=== PATIENT | female | born 1955 | race African-American/Black ===

== ENCOUNTER 2017-08-29 10:29 | Emergency (ER) | payer MEDICARE, MEDICAID | END 2017-08-29 11:26 | disposition home or self-care (01) | LOC: ERS 10:29 | DX: M79.89 Other specified soft tissue disorders (principal) | CPT/HCPCS: 99283 ==

== ENCOUNTER 2017-12-25 07:56 | Outpatient (CLI) | payer MEDICARE, OTHER | END 2017-12-25 07:57 | disposition home or self-care (01) | LOC: BICMAMMO 07:56 | PROVIDERS: ATTEND Family Medicine | DX: Z12.31 Encounter for screening mammogram for malignant neoplasm of breast (principal) | CPT/HCPCS: 77063; 77067 ==

== ENCOUNTER 2018-01-13 06:00 | Emergency (ER) | payer MEDICARE, OTHER ==
[2018-01-13 07:24] LABS: #Eosinphils 0.1 thou/uL (0.0-0.7); #Lymphocytes 1.1 thou/uL (1.20-3.40); #Monocytes 0.3 thou/uL (0.11-0.59); #Neutrophils 3.7 thou/uL (1.40-6.50); %Basophils 0.4 % (0.0-1.0); %Eosinophils 1.4 % (0.0-10.0); %Lymphocytes 21.3 % (21.0-51.0); %Neutrophils 70.9 % (42.0-75.0); Hemoglobin 12.1 g/dL (12.0-16.0); Mean Corpuscular HGB CONC 33.2 g/dL (32.0-36.0); Mean Corpuscular Hemoglobin 32.3 pg (27.0-31.0); Mean Corpuscular Volume 97.2 fL (78.0-98.0); Mean Platelet Volume 9.5 fL (7.4-10.4); Platelet Count 184 thou/uL (130-400); RBC Distribution Width 12.8 % (11.5-14.5); Red Blood Cell (RBC) Count 3.74 mill/uL (4.20-5.40); White Blood Cell (WBC) Count 5.2 thou/uL (4.8-10.8)
[2018-01-13 07:42] LABS: ALT (SGPT) 14 U/L (8-55); AST (SGOT) 16 U/L (5-34); Albumin 3.7 g/dL (3.5-5.0); Alkaline Phosphatase 96 U/L (40-150); Anion Gap 13 mmol/L (10-20); BUN (Urea Nitrogen) 16 mg/dL (9.8-20.1); Bilirubin, Total 0.5 mg/dL (0.2-1.2); Calc. Creatinine Clearance 0 mL/min (70-130); Carbon Dioxide 22 mmol/L (22-29); Chloride 106 mmol/L (98-107); Estimated GFR-MDRD 75; Glucose 196 mg/dL (70-105); Potassium 4.4 mmol/L (3.5-5.1); Protein, Total 7.7 g/dL (6.0-8.3); Sodium 137 mmol/L (136-145)
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
[2018-01-13] MEDS ORDERED: Ketorolac Tromethamine 30 MG/ML VIAL ONE (09:20)
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
== END 2018-01-13 09:25 | disposition home or self-care (01) ==
LOC: ERS 06:00
DX: S42.034A Nondisplaced fracture of lateral end of right clavicle, initial encounter for closed fracture (principal); E11.9 Type 2 diabetes mellitus without complications; I10 Essential (primary) hypertension; E78.00 Pure hypercholesterolemia, unspecified; F32.9 Major depressive disorder, single episode, unspecified; F41.9 Anxiety disorder, unspecified; Z79.899 Other long term (current) drug therapy; V49.69XA Unspecified car occupant injured in collision with other motor vehicles in traffic accident, initial encounter
CPT/HCPCS: 70450; 71260; 72125; 80053; 85025; J1885

== ENCOUNTER 2018-04-05 16:02 | Observation (INO) | payer MEDICARE, MEDICAID ==
--- NOTE | 2018-04-05 16:51 | RAD ---
PA AND LATERAL CHEST: HISTORY: A 62-year-old female with a history of cough for two weeks. FINDINGS: Heart size is within normal limits. Bronchovascular markings are increased bilaterally. There are s ome patchy alveolar parenchymal changes noted in the right upper, mid, and lower lung zones, and left base, more concerning for pneumonia, although asymmetric edema could conceivably have a similar appe arance. There does appear to be some mild vascular congestion. IMPRESSION: 1. Mild bilateral vascular congestion. 2. Patchy alveolar parenchymal changes in the right upper, right mid, and right lower lung zones and left lower lung zone, evidence for patchy pneumonia. Correlate clinically. Continue short-term fol lowup for complete clearing. POS: [facility]
[2018-04-05 17:54] LABS: #Eosinphils 0.1 thou/uL (0.0-0.7); #Monocytes 0.4 thou/uL (0.11-0.59); #Neutrophils 4.7 thou/uL (1.40-6.50); %Basophils 0.6 % (0.0-1.0); %Eosinophils 1.1 % (0.0-10.0); %Lymphocytes 15.8 % (21.0-51.0); %Neutrophils 75.5 % (42.0-75.0); Hemoglobin 12.7 g/dL (12.0-16.0); Mean Corpuscular Hemoglobin 31.5 pg (27.0-31.0); Mean Corpuscular Volume 95.5 fL (78.0-98.0); Mean Platelet Volume 8.9 fL (7.4-10.4); Platelet Count 253 thou/uL (130-400); RBC Distribution Width 12.8 % (11.5-14.5); Red Blood Cell (RBC) Count 4.03 mill/uL (4.20-5.40); White Blood Cell (WBC) Count 6.2 thou/uL (4.8-10.8)
[2018-04-05] MEDS ORDERED: Cefepime 2 GM VIAL ONE (18:06)
[2018-04-05 18:12] LABS: Bilirubin Negative (Negative); Blood, Urine Negative (Negative); Clarity CLOUDY (Clear); Glucose, Urine (Dipstick) Negative (Negative); Leukocyte Small (Negative); Nitrite Negative (Negative); Protein, Urine (Dipstick) Trace mg/dL (Neg-Trace); Specific Gravity, Urine 1.027 (1.002-1.036)
[2018-04-05 18:15] LABS: Bacteria/HPF 1+ HPF (None Seen); Pathc Cast-AUWi Flag 1.88 (0-2.49)
[2018-04-05 18:23] LABS: Crystals/HPF None Seen HPF (Negative); Hyaline Casts/LPF 0-3 HYALINE CAST LPF (0-3 Hyaline); RBC/HPF None Seen HPF (0-3); Squamous Epithelial 0-3 HPF (0-3)
[2018-04-05 18:34] LABS: CKMB 0.3 ng/mL (0-6.6); Troponin I Less than 0.010 ng/mL (< 0.028)
[2018-04-05 18:34] LABS: ALT (SGPT) 17 U/L (8-55); Albumin 3.7 g/dL (3.5-5.0); Alkaline Phosphatase 78 U/L (40-150); BUN (Urea Nitrogen) 16 mg/dL (9.8-20.1); Bilirubin, Total 0.5 mg/dL (0.2-1.2); Calc. Creatinine Clearance 0 mL/min (70-130); Calcium 9.2 mg/dL (7.8-10.44); Carbon Dioxide 19 mmol/L (22-29); Chloride 104 mmol/L (98-107); Estimated GFR-MDRD 73; Glucose 111 mg/dL (70-105); Sodium 137 mmol/L (136-145)
[2018-04-05 18:39] LABS: Globulin 4.1 g/dL (2.4-3.5); Potassium 4.4 mmol/L (3.5-5.1); Protein, Total 7.8 g/dL (6.0-8.3)
[2018-04-05 18:40] LABS: Anion Gap 18 mmol/L (10-20)
[2018-04-05 18:43] LABS: AST (SGOT) 24 U/L (5-34)
--- NOTE | 2018-04-05 19:13 | PDOC.FPRHP ---
- History of Present Illness Chief Complaint: cough History of Present Illness: Patient is a 62YO AAF with a PMH significant for HTN and DMII who presented to the ED with a CC of persistent cough and congestion that has been ongoing for the last week. The patient reported that about 1 week ago she developed a cough and some chest congestion. She states that the cough has been productive of white sputum and that she has had some associated fatigue but has not felt febrile or chilled. Her appetite has also still been normal. She also endorsed some associated ear pressure but denied any sore throat, eye pain or discharge or headache. She stated that her daughter has also recently been ill with a viral infection. She has been taking mucinex and tussin at home for the cough and stated she did not get much relief with them. ED Course: The patient was given one dose of IV cefepime and vancomycin as well as PO levaquin and 3L of NS. - Allergies/Adverse Reactions Allergies Allergy/AdvReac Type Severity Reaction Status Date / Time Penicillins Allergy Verified 04/06/18 01:16 - Home Medications Medication Instructions Recorded Confirmed Type Atorvastatin Calcium [Lipitor] 20 mg PO HS 04/05/18 04/05/18 History Hydrochlorothiazide 12.5 mg PO DAILY 04/05/18 04/05/18 History Losartan Potassium [Cozaar] 25 mg PO DAILY 04/05/18 04/05/18 History Meclizine HCl [Antivert] 25 mg PO QID PRN 04/05/18 04/05/18 History Pioglitazone HCl [Actos] 45 mg PO DAILY 04/05/18 04/05/18 History glipiZIDE [Glipizide] 5 mg PO DAILY 04/05/18 04/05/18 History - History PMHx: DMII, HTN, HLD, fibrmyalgia, GERD, BPV, tinnitus, Depression/anxiety PSHx: Left ankle surgery & cholecystectomy FHx: HTN & DMII in mother and paternal uncle Social: Lives at home alone in [place]. No tobacco, EtOH, or drug use. - Review of Systems General: reports: fatigue. denies: fever/chills, weight/appetite/sleep changes Eyes: denies: eye pain, vision changes ENT: reports: other (no sore throat). denies: nasal congestion Respiratory: reports: cough, congestion. denies: shortness of breath Cardiovascular: denies: chest pain, edema Gastrointestinal: denies: nausea, vomiting, diarrhea, constipation Genitourinary: denies: dysuria, polyuria Skin: denies: rashes, itching Musculoskeletal: denies: swelling, arthritis/arthralgias Neurological: denies: numbness, syncope, weakness Psychological: reports: anxiety. denies: depression - Vital signs BP: 161/107 HR: 95 RR: 22 Tmax: 100.5F Pox: 98% on 2L Wt: 120.429 kg - Physical Exam Constitutional: NAD, awake, alert and oriented, well developed HEENT: normocephalic and atraumatic, conjunctiva clear, grossly normal vision, grossly normal hearing, oropharynx clear, other (slightly dry mucus membranes) Neck: supple, FROM Heart: RRR, normal S1/S2, pulses present, no edema Lungs: no respiratory distress, good air movement, no wheezing, other (slight crackles in RML on PE.) Abdomen: soft, non-tender, bowel sounds present Musculoskeletal: normal structure, ROM grossly normal Neurological: no focal deficit -Neurological: symmetric facial movements Skin: no rash/lesions, good turgor, no jaundice Heme/Lymphatic: no unusual bruising or bleeding Psychiatric: normal mood and affect, good judgment and insight, intact recent and remote memory FMR H&P: Results - Labs Result Diagrams: 04/05/18 17:31 04/06/18 05:05 Lab results: WBC 6.2 thou/uL (4.8-10.8) 04/05/18 17:31 Hgb 12.7 g/dL (12.0-16.0) 04/05/18 17:31 Hct 38.5 % (36.0-47.0) 04/05/18 17:31 MCV 95.5 fL (78.0-98.0) 04/05/18 17:31 Plt Count 253 thou/uL (130-400) 04/05/18 17:31 Neutrophils % 75.5 % (42.0-75.0) H 04/05/18 17:31 Sodium 137 mmol/L (136-145) 04/05/18 17:31 Potassium 4.4 mmol/L (3.5-5.1) 04/05/18 17:31 Chloride 104 mmol/L (98-107) 04/05/18 17:31 Carbon Dioxide 19 mmol/L (22-29) L 04/05/18 17:31 BUN 16 mg/dL (9.8-20.1) 04/05/18 17:31 Creatinine 0.95 mg/dL (0.6-1.1) 04/05/18 17:31 Glucose 111 mg/dL (70-105) H 04/05/18 17:31 Lactic Acid 1.3 mmol/L (0.5-2.2) 04/05/18 17:31 Calcium 9.2 mg/dL (7.8-10.44) 04/05/18 17:31 Total Bilirubin 0.5 mg/dL (0.2-1.2) 04/05/18 17:31 AST 24 U/L (5-34) 04/05/18 17:31 ALT 17 U/L (8-55) 04/05/18 17:31 Alkaline Phosphatase 78 U/L (40-150) 04/05/18 17:31 CK-MB (CK-2) 0.3 ng/mL (0-6.6) 04/05/18 17:37 B-Natriuretic Peptide Less than 10.0 pg/mL (0-100) 04/05/18 17:37 Serum Total Protein 7.8 g/dL (6.0-8.3) 04/05/18 17:31 Albumin 3.7 g/dL (3.5-5.0) 04/05/18 17:31 Urine Ketones Trace mg/dL (Negative) H 04/05/18 17:45 Urine Blood Negative (Negative) 04/05/18 17:45 Urine Nitrite Negative (Negative) 04/05/18 17:45 Ur Leukocyte Esterase Small (Negative) H 04/05/18 17:45 Urine RBC None Seen HPF (0-3) 04/05/18 17:45 Urine WBC 4-6 HPF (0-3) H 04/05/18 17:45 Ur Squamous Epith Cells 0-3 HPF (0-3) 04/05/18 17:45 Urine Bacteria 1+ HPF (None Seen) H 04/05/18 17:45 - EKG Interpretation EKG: NSR - Radiology Interpretation Chest x-ray Status: image reviewed by me, report reviewed by me (multifocal PNA w/ patchy infiltrates throughout on the R and in LLL) FMR H&P: A/P - Problem List (1) Sepsis Current Visit: Yes Status: Acute Code(s): A41.9 - SEPSIS, UNSPECIFIED ORGANISM Qualifiers: Sepsis type: sepsis due to unspecified organism Qualified Code(s): A41.9 - Sepsis, unspecified organism (2) Pneumonia Current Visit: Yes Status: Acute Code(s): J18.9 - PNEUMONIA, UNSPECIFIED ORGANISM Qualifiers: Pneumonia type: due to unspecified organism Laterality: bilateral (3) HTN (hypertension) Current Visit: Yes Status: Chronic Code(s): I10 - ESSENTIAL (PRIMARY) HYPERTENSION Qualifiers: Hypertension type: essential hypertension Qualified Code(s): I10 - Essential (primary) hypertension (4) Diabetes type 2, controlled Current Visit: Yes Status: Chronic Code(s): E11.9 - TYPE 2 DIABETES MELLITUS WITHOUT COMPLICATIONS (5) BPV (benign positional vertigo) Current Visit: Yes Status: Chronic Code(s): H81.10 - BENIGN PAROXYSMAL VERTIGO, UNSPECIFIED EAR (6) Tinnitus Current Visit: Yes Status: Chronic Code(s): H93.19 - TINNITUS, UNSPECIFIED EAR (7) Fibromyalgia Current Visit: Yes Status: Chronic (8) GERD (gastroesophageal reflux disease) Current Visit: Yes Status: Chronic Code(s): K21.9 - GASTRO-ESOPHAGEAL REFLUX DISEASE WITHOUT ESOPHAGITIS - Plan 62YO AAF w/ a PMH of DMII & HTN who presented to the ED with a chief complaint of a persistent cough that has been ongoing for the last week who was found to be be septic 2/2 diffuse R and LLL PNA on chest x-ray. Sepsis 2/2 multifocal PNA: - Patient was tachycardic up to 110, tachypnic up to a RR of 26, and febrile up to 100.5F in the ED. CXR was also significant for multifocal PNA. - Procal was 0.10 and lactate was 1.4. WBC WNLs at 6.2. Appeared slightly dry on PE. - Was given 3L of NS as well as IV cefepime and vanc. Was also given a dose of PO levaquin. - Will continue PO levaquin only for now as patient does not require MRSA or double pseudomonas coverage as she has no risk factors for either. - Will continue IVF w/ LR @ 140mL/hr. - Blood and urine cultures pending. - Repeat procal & BMP ordered for AM. HTN: - Patient BP elevated up to 186/107 in the ED. Was down to SBP in the 160s on PE. Stated that she did take her BP meds at home today. - Will resume home meds and continue to monitor closely on telemetry. DMII: - A1c 6.4 per labs in clinic last month. - Will resume home meds and start on mild SSI and get ACHS accuchecks. - Will order hypoglycemia protocol as well. GERD: - Will resume home meds. BPV: - Will resume home PRN meclizine and zofran. h/o anxiety/depression: - Patient denies taking anything for either of these currently. FMR H&P: Upper Level - Pertinent history 62 F with PMHx T2DM here with cc of cough for a week. She endorses white sputum production with the cough. She denies subjective fever, chills, n/v/d. Her daughter has been sick with similar symptoms. She denies any chest pain or orthopnea. She endorses a little bit of ear pain in her R ear. - Pertinent findings Febrile, tachycardic CXR shows multifocal PNA, EKG NSR Gen: awake, alert, oriented, in no distress HEENT: atraumatic, normocephalic, dry MM CV:RRR, no murmur noted RESP: Expiratory wheezing in RUL ABD: soft, nontender, nondistended, bowel sounds present EXT: no cyanosis, edema on BL ankles which patient states is a lipoma - Plan Date/Time: 04/05/181912 62 yo F with sepsis 2/2 multifocal pneumonia 1. Sepsis 2/2 multifocal PNA - Mildly hypoxic, tachycardic and febrile on presentation - s/p 3L in ED, will continue IV fluids with LR - BCx, UCx pending - Will continue levaquin - Duonebs PRN - Procal WNL Please see Dr. Wise's note for remainder of A/P for chronic medical conditions. I, Kaity Martinez MD, PGY-3, have evaluated this patient and agree with findings/ plan as outlined by post graduate intern resident. Pertinent changes/additions are listed here. Attending Addendum - Attending Addendum Date/Time: 04/06/18 3018 I personally evaluated the patient and discussed the management with Dr. Wise/ Juan. I agree with the History, Examination, Assessment and Plan documented above with any addition or exceptions noted below. Patient likely with viral pneumonia due to low PCT and reassuring WBC. Hold abx and monitor clinical course.
[2018-04-05] MEDS ORDERED: Sodium Chloride 0.45% 1,000 ML IV SCH (20:45)
[2018-04-05] MEDS ORDERED: Acetaminophen 325 MG TAB PO PRN (20:49)
[2018-04-05] MEDS ORDERED: Dextrose 5% in Water 1,000 ML IV PRN (20:49)
[2018-04-05] MEDS ORDERED: Dextrose 50% Abboject 50 ML SYRINGE SLOW IVP PRN (20:49)
[2018-04-05] MEDS ORDERED: HumaLOG 300 UNITS/3 ML VIAL SC PRN (20:49)
[2018-04-05 20:56] VITALS: BMI 53.6
[2018-04-05] MEDS: guaiFENesin/DM ER PO SCH (21:36)
[2018-04-05] MEDS: Lactated Ringer's 1,000 ML IV SCH (21:37)
[2018-04-05] MEDS: Enoxaparin Sodium 40 MG/0.4 ML SYRINGE SC SCH (21:37)
[2018-04-06] MEDS: Lactated Ringer's 1,000 ML IV SCH (03:39)
[2018-04-06] MEDS: Meclizine HCl 25 MG TAB PO PRN ×2 (04:32→23:51)
[2018-04-06] MEDS ORDERED: Calcium Carbonate 500 MG ChewTAB PO PRN (04:36)
[2018-04-06 06:06] LABS: Anion Gap 16 mmol/L (10-20); BUN (Urea Nitrogen) 11 mg/dL (9.8-20.1); Calc. Creatinine Clearance 162 mL/min (70-130); Calcium 8.2 mg/dL (7.8-10.44); Carbon Dioxide 14 mmol/L (22-29); Chloride 110 mmol/L (98-107); Estimated GFR-MDRD Greater than 90; Glucose 133 mg/dL (70-105); Potassium 3.9 mmol/L (3.5-5.1); Sodium 136 mmol/L (136-145)
--- NOTE | 2018-04-06 06:49 | PDOC.FM ---
- Subjective Subjective: Patient doing well this AM. No significant overnight events. Patient states she is feeling better. She still feels like she has a lot of congestion in her chest. She is tolerating PO. Patient inquiring when she will be able to go home. - Objective MAR Reviewed: Yes Vital Signs & Weight: Vital Signs (12 hours) Temp Pulse Resp BP Pulse Ox 04/06/18 03:43 97.9 F 79 18 129/67 94 L 04/05/18 23:15 98.7 F 82 20 130/65 96 04/05/18 20:37 94 L 04/05/18 20:36 98.8 F 91 22 H 136/73 87 L Weight Weight 120.429 kg I&O: 04/04/18 04/05/18 04/06/18 06:59 06:59 06:59 Intake Total 1412 Output Total 425 Balance 987 Result Diagrams: 04/05/18 17:31 04/06/18 05:05 EKG Reviewed by me: Yes Radiology Reviewed by me: Yes <Lexy De Los Santos - Last Filed: 04/06/18 10:02> - Objective Vital Signs & Weight: Vital Signs (12 hours) Temp Pulse Resp BP Pulse Ox 04/06/18 08:00 98.9 F 90 18 142/70 H 95 04/06/18 03:43 97.9 F 79 18 129/67 94 L 04/05/18 23:15 98.7 F 82 20 130/65 96 Weight Weight 120.429 kg I&O: 04/05/18 04/06/18 04/07/18 06:59 06:59 06:59 Intake Total 1412 Output Total 425 Balance 987 Result Diagrams: 04/05/18 17:31 04/06/18 05:05 <Mitchel Yusuf - Last Filed: 04/06/18 10:24> Phys Exam - Physical Examination Constitutional: NAD HEENT: moist MMs Neck: supple Respiratory: wheezing present Cardiovascular: RRR, no significant murmur Gastrointestinal: soft, no distention Musculoskeletal: no edema, pulses present Neurological: non-focal, moves all 4 limbs Psychiatric: normal affect, A&O x 3 Skin: no rash, cap refill <2 seconds <Lexy De Los Santos - Last Filed: 04/06/18 10:02> Dx/Plan (1) Sepsis Code(s): A41.9 - SEPSIS, UNSPECIFIED ORGANISM Status: Acute Qualifiers: Sepsis type: sepsis due to unspecified organism Qualified Code(s): A41.9 - Sepsis, unspecified organism (2) Pneumonia Code(s): J18.9 - PNEUMONIA, UNSPECIFIED ORGANISM Status: Acute Qualifiers: Pneumonia type: due to unspecified organism Laterality: bilateral (3) BPV (benign positional vertigo) Code(s): H81.10 - BENIGN PAROXYSMAL VERTIGO, UNSPECIFIED EAR Status: Chronic (4) Diabetes type 2, controlled Code(s): E11.9 - TYPE 2 DIABETES MELLITUS WITHOUT COMPLICATIONS Status: Chronic (5) Fibromyalgia Status: Chronic (6) GERD (gastroesophageal reflux disease) Code(s): K21.9 - GASTRO-ESOPHAGEAL REFLUX DISEASE WITHOUT ESOPHAGITIS Status: Chronic (7) HTN (hypertension) Code(s): I10 - ESSENTIAL (PRIMARY) HYPERTENSION Status: Chronic Qualifiers: Hypertension type: essential hypertension Qualified Code(s): I10 - Essential (primary) hypertension - Plan Plan: 62YO AAF w/ a PMH of DMII & HTN who presented to the ED with a chief complaint of a persistent cough that has been ongoing for the last week who was found to be be septic 2/2 diffuse R and LLL PNA on chest x-ray. Sepsis 2/2 multifocal PNA: - Patient was tachycardic up to 110, tachypnic with RR of 26, and febrile up to 100.5F in the ED. - CXR significant for multifocal PNA. Viral vs. bacterial. - Procal was 0.10 and lactate was 1.4. WBC WNLs at 6.2. - Consider repeat CXR today. - Was given 3L of NS as well as IV cefepime and vanc. Was also given a dose of PO levaquin. - Will continue PO levaquin only for now as patient does not require MRSA or double pseudomonas coverage as she has no risk factors for either. -Will D/C fluids once tolerating PO. - Blood and urine cultures pending. - Repeat procalcitonin this AM 0.13. Acute hypoxic respiratory failure 2/2 multifocal PNA: - Requiring 2L NC on presentation - Continue to wean as tolerated; goal >92% HTN: - Patient's BP elevated up to 186/107 in the ED. Was down to SBP in the 160s on PE. Stated that she did take her BP meds at home today. - Will resume home meds and continue to monitor closely on telemetry. - BP this AM 129/67 DMII: - A1c 6.4 per labs in clinic last month. - Will resume home meds and start on mild SSI and get ACHS accuchecks. GERD: - Will resume home meds. BPPV: - Will resume home PRN meclizine and zofran. h/o anxiety/depression: - Patient denies taking anything for either of these currently. Dispo: Stable. Continue PO antibiotics. If improved, may consider d/c home in next 24-48 hours. Will continue to wean off O2. <Lexy De Los Santos - Last Filed: 04/06/18 10:02> (1) Sepsis Code(s): A41.9 - SEPSIS, UNSPECIFIED ORGANISM Status: Acute Qualifiers: Sepsis type: sepsis due to unspecified organism Qualified Code(s): A41.9 - Sepsis, unspecified organism (2) Pneumonia Code(s): J18.9 - PNEUMONIA, UNSPECIFIED ORGANISM Status: Acute Qualifiers: Pneumonia type: due to unspecified organism Laterality: bilateral (3) HTN (hypertension) Code(s): I10 - ESSENTIAL (PRIMARY) HYPERTENSION Status: Chronic Qualifiers: Hypertension type: essential hypertension Qualified Code(s): I10 - Essential (primary) hypertension (4) Diabetes type 2, controlled Code(s): E11.9 - TYPE 2 DIABETES MELLITUS WITHOUT COMPLICATIONS Status: Chronic (5) BPV (benign positional vertigo) Code(s): H81.10 - BENIGN PAROXYSMAL VERTIGO, UNSPECIFIED EAR Status: Chronic (6) Tinnitus Code(s): H93.19 - TINNITUS, UNSPECIFIED EAR Status: Chronic (7) Fibromyalgia Status: Chronic (8) GERD (gastroesophageal reflux disease) Code(s): K21.9 - GASTRO-ESOPHAGEAL REFLUX DISEASE WITHOUT ESOPHAGITIS Status: Chronic <Mitchel Yusuf - Last Filed: 04/06/18 10:24> Attending Addendum - Attending Addendum Date/Time: 04/06/18 1022 I personally evaluated the patient and discussed the management with Dr. De Los Santos. I agree with the History, Examination, Assessment and Plan documented above with any addition or exceptions noted below. Patient feeling improved. I do not suspect serious bacterial infection due to lack of systemic symptoms, overall normal WBC and negative PCT. Will continue Levaquin for possible CAP. Continue Mucinex and breathing treatments and work to wean O2. She does not appear overtly septic. Consider discharge once feeling well and off O2, possibly today or tomorrow. <Mitchel Yusuf - Last Filed: 04/06/18 10:24>
[2018-04-06] MEDS: glipiZIDE 5 MG TAB PO SCH (08:31)
[2018-04-06] MEDS: Pioglitazone HCl 45 MG TAB PO SCH (08:32)
[2018-04-06] MEDS: guaiFENesin/DM ER PO SCH ×2 (08:32→20:52)
[2018-04-06] MEDS: Losartan 25 MG TAB PO SCH (08:32)
[2018-04-06] MEDS: Hydrochlorothiazide 25 MG TAB PO SCH (08:32)
[2018-04-06] MEDS ORDERED: Labetalol HCl 100 MG/20 ML VIAL SLOW IVP PRN (13:14)
[2018-04-06] MEDS: Ondansetron ODT 4 MG TAB PO PRN (16:22)
[2018-04-06] MEDS: Enoxaparin Sodium 40 MG/0.4 ML SYRINGE SC SCH (20:52)
[2018-04-06] MEDS ORDERED: Atorvastatin Calcium 20 MG TAB PO SCH (21:00)
[2018-04-07] MEDS: Ondansetron ODT 4 MG TAB PO PRN (00:18)
--- NOTE | 2018-04-07 06:26 | PDOC.FM ---
- Subjective Subjective: Patient doing well this AM. No significant overnight events. Patient states she is much improved from admission. She denies any shortness of breath or chest pain. - Objective MAR Reviewed: Yes Vital Signs & Weight: Vital Signs (12 hours) Temp Pulse Resp BP Pulse Ox 04/07/18 04:00 98.4 F 97 20 144/82 H 94 L 04/07/18 00:10 98.1 F 96 20 166/74 H 93 L 04/06/18 22:50 92 16 04/06/18 19:46 92 L 04/06/18 19:44 98.1 F 96 20 137/63 86 L 04/06/18 19:15 92 16 Weight Weight 120.429 kg I&O: 04/05/18 04/06/18 04/07/18 06:59 06:59 06:59 Intake Total 1412 950 Output Total 425 Balance 987 950 Result Diagrams: 04/05/18 17:31 04/06/18 05:05 EKG Reviewed by me: Yes Radiology Reviewed by me: Yes <Lexy De Los Santos - Last Filed: 04/07/18 10:05> - Objective Vital Signs & Weight: Vital Signs (12 hours) Temp Pulse Resp BP Pulse Ox 04/07/18 07:15 98.3 F 94 18 141/67 H 95 04/07/18 04:00 98.4 F 97 20 144/82 H 94 L 04/07/18 00:10 98.1 F 96 20 166/74 H 93 L 04/06/18 22:50 92 16 Weight Weight 120.429 kg I&O: 04/06/18 04/07/18 04/08/18 06:59 06:59 06:59 Intake Total 1412 1670 Output Total 425 Balance 987 1670 Result Diagrams: 04/05/18 17:31 04/06/18 05:05 <Mitchel Yusuf - Last Filed: 04/07/18 10:25> Phys Exam - Physical Examination Constitutional: NAD HEENT: moist MMs Neck: supple Diffuse wheezing, improved from yesterday Cardiovascular: RRR, no significant murmur Gastrointestinal: soft, no distention Musculoskeletal: no edema Neurological: non-focal Psychiatric: normal affect, A&O x 3 Skin: no rash, cap refill <2 seconds <Lexy De Los Santos - Last Filed: 04/07/18 10:05> Dx/Plan (1) Sepsis Code(s): A41.9 - SEPSIS, UNSPECIFIED ORGANISM Status: Acute Qualifiers: Sepsis type: sepsis due to unspecified organism Qualified Code(s): A41.9 - Sepsis, unspecified organism (2) Pneumonia Code(s): J18.9 - PNEUMONIA, UNSPECIFIED ORGANISM Status: Acute Qualifiers: Pneumonia type: due to unspecified organism Laterality: bilateral (3) BPV (benign positional vertigo) Code(s): H81.10 - BENIGN PAROXYSMAL VERTIGO, UNSPECIFIED EAR Status: Chronic (4) Diabetes type 2, controlled Code(s): E11.9 - TYPE 2 DIABETES MELLITUS WITHOUT COMPLICATIONS Status: Chronic (5) Fibromyalgia Status: Chronic (6) GERD (gastroesophageal reflux disease) Code(s): K21.9 - GASTRO-ESOPHAGEAL REFLUX DISEASE WITHOUT ESOPHAGITIS Status: Chronic (7) HTN (hypertension) Code(s): I10 - ESSENTIAL (PRIMARY) HYPERTENSION Status: Chronic Qualifiers: Hypertension type: essential hypertension Qualified Code(s): I10 - Essential (primary) hypertension - Plan Plan: 62YO AAF w/ a PMH of DMII & HTN who presented to the ED with a chief complaint of a persistent cough that has been ongoing for the last week who was found to be be septic 2/2 diffuse R and LLL PNA on chest x-ray. Sepsis 2/2 multifocal PNA: - Patient was tachycardic up to 110, tachypnic with RR of 26, and febrile up to 100.5F in the ED. - CXR significant for multifocal PNA. Viral vs. bacterial. - Procal was 0.10 and lactate was 1.4. WBC WNLs at 6.2. - Was given 3L of NS as well as IV cefepime and vanc. Was also given a dose of PO levaquin. - Will continue PO levaquin only for now as patient does not require MRSA or double pseudomonas coverage as she has no risk factors for either. - Blood cultures NGTD - Urine culture with beta hemolytic strep; will not treat as <10,000 cfu's. Asymptomatic. - Will send home with flonase and albuterol. Acute hypoxic respiratory failure 2/2 multifocal PNA, resolved: - Requiring 2L NC on presentation; satting 94% on RA now HTN: - Patient's BP elevated up to 186/107 in the ED. Was down to SBP in the 160s on PE. Stated that she did take her BP meds at home today. - Continue home meds - BP this AM 144/82 DMII: - A1c 6.4 per labs in clinic last month. - Continue home meds and start on mild SSI and get ACHS accuchecks. - Has not required SSI GERD: - Continue home meds. BPPV: - Continue home PRN meclizine and zofran. h/o anxiety/depression: - Patient denies taking anything for either of these currently. Dispo: Stable. Continue PO antibiotics. Patient off O2. Plan for d/c home today. <Lexy De Los Santos - Last Filed: 04/07/18 10:05> (1) Sepsis Code(s): A41.9 - SEPSIS, UNSPECIFIED ORGANISM Status: Acute Qualifiers: Sepsis type: sepsis due to unspecified organism Qualified Code(s): A41.9 - Sepsis, unspecified organism (2) Pneumonia Code(s): J18.9 - PNEUMONIA, UNSPECIFIED ORGANISM Status: Acute Qualifiers: Pneumonia type: due to unspecified organism Laterality: bilateral (3) HTN (hypertension) Code(s): I10 - ESSENTIAL (PRIMARY) HYPERTENSION Status: Chronic Qualifiers: Hypertension type: essential hypertension Qualified Code(s): I10 - Essential (primary) hypertension (4) Diabetes type 2, controlled Code(s): E11.9 - TYPE 2 DIABETES MELLITUS WITHOUT COMPLICATIONS Status: Chronic (5) BPV (benign positional vertigo) Code(s): H81.10 - BENIGN PAROXYSMAL VERTIGO, UNSPECIFIED EAR Status: Chronic (6) Tinnitus Code(s): H93.19 - TINNITUS, UNSPECIFIED EAR Status: Chronic (7) Fibromyalgia Status: Chronic (8) GERD (gastroesophageal reflux disease) Code(s): K21.9 - GASTRO-ESOPHAGEAL REFLUX DISEASE WITHOUT ESOPHAGITIS Status: Chronic <Mitchel Yusuf - Last Filed: 04/07/18 10:25> Attending Addendum - Attending Addendum Date/Time: 04/07/18 1024 I personally evaluated the patient and discussed the management with Dr. De Los Santos. I agree with the History, Examination, Assessment and Plan documented above with any addition or exceptions noted below. Patient doing well this morning and has been off supplemental O2 since yesterday. She feels well, cough controlled. Labs stable. Likely d/c later this morning if ambulating well and no issues with outpatient follow up with [facility] tomorrow. <Mitchel Yusuf - Last Filed: 04/07/18 10:25>
[2018-04-07 08:00] VITALS: BP 141/67; TEMP 98.3
[2018-04-07] MEDS: Pioglitazone HCl 45 MG TAB PO SCH (08:24)
[2018-04-07] MEDS: Losartan 25 MG TAB PO SCH (08:24)
[2018-04-07] MEDS: glipiZIDE 5 MG TAB PO SCH (08:24)
[2018-04-07] MEDS: Hydrochlorothiazide 25 MG TAB PO SCH (08:26)
[2018-04-07] MEDS: guaiFENesin/DM ER PO SCH (08:29)
[2018-04-07] MEDS ORDERED: Fluticasone Propionate Nasal Spray 16 gm Bottle NASAL SCH (09:00)
--- NOTE | 2018-04-08 15:24 | DIS-2 ---
DATE OF ADMISSION: 04/05/2018 DATE OF DISCHARGE: 04/07/2018 ADMITTING ATTENDING: Mitchel Yusuf MD DISCHARGE ATTENDING: Mitchel Yusuf MD RESIDENT: Lexy De Los Santos DO CONSULTS: None. PROCEDURES: Chest x-ray showed mild bilateral vascular congestion as well as patchy alveolar parench ymal changes in the right upper, right mid, and right lower lung zones and left lower lung zones, whi ch is consistent with patchy pneumonia. PRIMARY DIAGNOSES: 1. Sepsis secondary to multifocal community-acquired pneumonia. 2. Acute hypoxic respiratory failure secondary to multifocal pneumonia. SECONDARY DIAGNOSES: 1. Hypertension. 2. Diabetes mellitus type 2. 3. Gastroesophageal reflux disease. 4. Benign paroxysmal positional vertigo. 5. History of anxiety and depression. DISCHARGE MEDICATIONS: 1. Atorvastatin calcium 20 mg p.o. at bedtime. 2. Glipizide 5 mg p.o. daily. 3. Hydrochlorothiazide 12.5 mg p.o. daily. 4. Losartan potassium 25 mg p.o. daily. 5. Meclizine HCL 25 mg p.o. q.i.d. 6. Pioglitazone 45 mg p.o. daily. 7. Albuterol sulfate HFA inhaler 2 puffs inhalation q.4 hours p.r.n. 8. Fluticasone propionate 2 sprays each nostril daily. 9. Mucinex DM two tablets p.o. q.12 hours. 10. Levofloxacin 750 mg p.o. times an additional 5 days. HISTORY OF PRESENT ILLNESS AND HOSPITAL COURSE: This is a 62-year-old -[place] female that p resented to the ED with chief complaint of persistent cough and congestion that had been ongoing for the last week. The patient reported that the cough is productive of white sputum. She has some asso ciated fatigue. She denied any fever or chills. Her appetite has been normal. The patient endorsed associated symptoms in family members. Her daughter was recently diagnosed with a viral infection. She has been taking Mucinex and Tessalon at home for cough and stated that she did not get much reli ef with this. Patient was given one dose of IV cefepime and vancomycin as well as p.o. Levaquin and 3 liters of normal saline in the emergency department. The patient remained stable throughout the course of her hospital stay. Over the course of the 2 day s, she did improve both clinically and subjectively. The patient was transitioned to p.o. Levaquin after antibiotics were given in the emergency department. She has done well with the p.o. antibiotic s. The patient was initially tachycardic and febrile to 100.5. Her vital signs after admission tahir ined stable. Chest x-ray was consistent with multifocal pneumonia as stated above. She was adequate ly fluid resuscitated and was tolerating p.o. Blood cultures are negative for growth to date. The patient did have a dirty urine. However, she was not complaining of any symptoms. Urine culture was obtained since patient did come in septic. The urine culture did grow out beta hemolytic strep. There was less than 10,000 colony forming units. Since the patient was asymptomatic and colony for lisa units were not greater than 100,000, no treatment was initiated. We will continue to monitor sy mptoms as an outpatient and treat as necessary. Patient was noted to have a blood pressure of 186/107 in the emergency department. Throughout the co urse of her hospital stay, her blood pressure waxed and waned. There are periods of time, in which h er blood pressure was within normal limits and at goal. However, other times, her blood pressure was slightly elevated. This could be secondary to her illness as well as the fact that she is taking Mu cinex DM, which can potentially raise the blood pressure. We would not make any changes to her blood pressure medications during this hospitalization; however, I would recommend that this continued to be monitored as an outpatient and adjust medications as necessary. Patient states that she has a followup appointment with Dr. Vasquez in clinic tomorrow. It was advised that she keeps that appointment and follow up. Dr. Vasquez can monitor her symptoms and ensure that she is improving. If necessary, she will be followed on a weekly or biweekly basis until the pneumonia is resolved. The patient did present with acute hypoxic respiratory failure secondary to the pneumonia. She was r equiring 2 liters on nasal cannula. Throughout the course of her hospital stay, we were able to wean her from the oxygen and she was satting above 88% on room air. DISPOSITION: Stable. DISCHARGE INSTRUCTIONS: 1. Location: Home. 2. Activity: As tolerated. 3. Diet: Diabetic. 4. Followup: The patient is to follow up as scheduled with Dr. Vasquez tomorrow at [facility]
== END 2018-04-07 10:55 | disposition home or self-care (01) ==
LOC: ERS 16:02 → 2SW 18:31
PROVIDERS: ADMIT Student in an Organized Health Care Education/Training Program; ATTEND Student in an Organized Health Care Education/Training Program
DX: A41.9 Sepsis, unspecified organism (principal); J18.9 Pneumonia, unspecified organism; J96.01 Acute respiratory failure with hypoxia; E11.9 Type 2 diabetes mellitus without complications; I10 Essential (primary) hypertension; M79.7 Fibromyalgia; E78.5 Hyperlipidemia, unspecified; K21.9 Gastro-esophageal reflux disease without esophagitis; H81.10 Benign paroxysmal vertigo, unspecified ear; H93.19 Tinnitus, unspecified ear; F41.9 Anxiety disorder, unspecified; F32.9 Major depressive disorder, single episode, unspecified; Z79.84 Long term (current) use of oral hypoglycemic drugs; Z79.899 Other long term (current) drug therapy; Z88.0 Allergy status to penicillin
CPT/HCPCS: 71046; 80048; 80053; 82553; 82962 ×3; 83605; 83880; 84145 ×2; 84484; 85025; 87040; 87086; 87205 ×2; 87804 ×2; 93005; 94640 ×2; 94760; 96360; 96361 ×3; 96365; 96367; 96372 ×2; 99285; G0378 ×2; 36415; 36416; 81003; 81015; 87070; J0692; J1650; J3370; J7620; Q0162

== ENCOUNTER 2019-01-17 07:31 | Outpatient (CLI) | payer MEDICARE, MEDICAID ==
--- NOTE | 2019-01-17 08:47 | MMO ---
Bilateral MAMMO Bilat Screen [facility]. CLINICAL HISTORY: Patient is 63 years old and is seen for screening. The patient has no family history of breast cancer. The patient has no personal history of cancer. VIEWS: The views performed were: bilateral mediolateral oblique with tomosynthesis; bilateral craniocaudal with tomosynthesis; bilateral mediolateral oblique; and right craniocaudal. FILMS COMPARED: The present examination has been compared to prior imaging studies performed at [facility] on 11/02/2014, 11/05/2015, 11/21/2016 and 12/25/2017. MAMMOGRAM FINDINGS: There are scattered fibroglandular densities. There are calcifications seen in both breasts. There are no suspicious masses, suspicious calcifications, or new areas of architectural distortion. IMPRESSION: THERE IS NO MAMMOGRAPHIC EVIDENCE OF MALIGNANCY. A ROUTINE FOLLOW-UP MAMMOGRAM IN 1 YEAR IS RECOMMENDED. THE RESULTS OF THIS EXAM WERE SENT TO THE PATIENT. ACR BI-RADS Category 2 - Benign finding MAMMOGRAPHY NOTE: 1. A negative mammogram report should not delay a biopsy if a dominant of clinically suspicious mass is present. 2. Approximately 10% to 15% of breast cancers are not detected by mammography. 3. Adenosis and dense breasts may obscure an underlying neoplasm. Reported by: BRENDEN TOWNSEND MD Electonically Signed: [id number]
== END 2019-01-17 07:32 | disposition home or self-care (01) ==
LOC: BICMAMMO 07:31
PROVIDERS: ATTEND Family Medicine
DX: Z12.31 Encounter for screening mammogram for malignant neoplasm of breast (principal)
CPT/HCPCS: 77063; 77067

== ENCOUNTER 2020-01-06 08:24 | Outpatient (CLI) | payer MEDICARE, MEDICAID ==
[2020-01-06 08:55] LABS: Estimated GFR-MDRD - POC Greater than 90
--- NOTE | 2020-01-06 20:53 | CT ---
CT TEMPORAL BONES WITH CONTRAST: Date: 01/06/2020 HISTORY: 64-year-old female with ICD-10: H93.13 tinnitus, bilateral. Rule out acoustic neuroma. Patient reportedly was unable to undergo MRI because of severe claustrophobia. FINDINGS: There is no obvious large mass at the cerebellopontine angle cisterns. There is no morphologic abnorm ality of the internal auditory canals, cochleae, vestibules, vestibular aqueducts, semicircular canal s, carotid canals, facial nerve canals, or jugular bulbs. The ossicles are bilaterally normal. There is no permeative or destructive osseous lesion at the skull base. No intracranial aneurysm in the pos terior fossa identified (the images exclude the superior portion of the basilar artery). There is no thrombosis or occlusion of the transverse and sigmoid sinuses, jugular bulbs, or uppermost internal j ugular veins. There is no high grade arterial stenosis in the carotid siphons. There is a small soft tissue density mass in the medial aspect of the right external auditory canal, presumably representing cerumen. The right middle ear cavity, mastoid antrum, and all or almost all o f the right mastoid air cells, are clear. There is moderate sized irregular soft tissue density mass occupying the floor of the left external a uditory canal, presumably cerumen, which broadly abuts the tympanic membrane. No obvious destruction of the osseous pierce of the left EAC. This soft tissue density and associated thickening of tympanic membrane is contiguous with, and abuts, the incus. Otherwise, the middle ear cavity is clear. Left ma stoid antrum and most or all of the left mastoid air cells are clear. Please note that contrast enhanced CT could miss a very small vestibular schwannoma in the internal a uditory canals that an MRI would be able to detect. IMPRESSION: 1. Soft tissue density mass in the left external auditory canal (presumably cerumen or small hematom a, but cannot rule out neoplasm) broadly abutting the left tympanic membrane. 2. Much smaller such density in the contralateral right external auditory canal. 3. Otherwise negative. POS: [facility]
== END 2020-01-06 08:25 | disposition home or self-care (01) ==
LOC: BICCT 08:24
PROVIDERS: ATTEND Otolaryngology Otolaryngic Allergy
DX: H93.13 Tinnitus, bilateral (principal); R42 Dizziness and giddiness
CPT/HCPCS: 70481; 82565

== ENCOUNTER 2020-01-20 07:57 | Outpatient (CLI) | payer MEDICARE, MEDICAID ==
--- NOTE | 2020-01-20 10:22 | MMO ---
Bilateral MAMMO Bilat Screen [facility]. CLINICAL HISTORY: Patient is 64 years old and is seen for screening. The patient has no family history of breast cancer. The patient has no personal history of cancer. VIEWS: The views performed were: bilateral craniocaudal with tomosynthesis and bilateral mediolateral oblique with tomosynthesis. FILMS COMPARED: The present examination has been compared to prior imaging studies performed at [facility] on 11/05/2015, 11/21/2016, 12/25/2017 and 01/17/2019. This study has been interpreted with the assistance of computer-aided detection. MAMMOGRAM FINDINGS: There are scattered fibroglandular densities. Benign calcifications are noted bilaterally. There are no suspicious masses, suspicious calcifications, or new areas of architectural distortion. IMPRESSION: THERE IS NO MAMMOGRAPHIC EVIDENCE OF MALIGNANCY. A ROUTINE FOLLOW-UP MAMMOGRAM IN 1 YEAR IS RECOMMENDED. THE RESULTS OF THIS EXAM WERE SENT TO THE PATIENT. ACR BI-RADS Category 2 - Benign finding MAMMOGRAPHY NOTE: 1. A negative mammogram report should not delay a biopsy if a dominant of clinically suspicious mass is present. 2. Approximately 10% to 15% of breast cancers are not detected by mammography. 3. Adenosis and dense breasts may obscure an underlying neoplasm. Reported by: GABRIELLE GARCIA MD Electonically Signed: [id number]
== END 2020-01-20 07:58 | disposition home or self-care (01) ==
LOC: BICMAMMO 07:57
PROVIDERS: ATTEND Nurse Practitioner Family
DX: Z12.31 Encounter for screening mammogram for malignant neoplasm of breast (principal)
CPT/HCPCS: 77063; 77067

== ENCOUNTER 2021-02-10 07:51 | Outpatient (CLI) | payer MEDICARE, MEDICAID | END 2021-02-10 07:52 | disposition home or self-care (01) | LOC: BICMAMMO 07:51 | PROVIDERS: ATTEND Student in an Organized Health Care Education/Training Program | DX: Z12.31 Encounter for screening mammogram for malignant neoplasm of breast (principal) | CPT/HCPCS: 77063; 77067 ==

== ENCOUNTER 2021-10-18 08:50 | Outpatient (CLI) | payer MEDICARE, MEDICAID ==
[2021-10-18] MEDS ORDERED: Iopamidol 370 76% 100 ML VIAL ONE (09:16)
[2021-10-18 10:37] LABS: Estimated GFR-MDRD - POC Greater than 90
== END 2021-10-18 08:51 | disposition home or self-care (01) ==
LOC: BICCT 08:50
PROVIDERS: ATTEND Chiropractor Neurology
DX: I73.9 Peripheral vascular disease, unspecified (principal); I77.89 Other specified disorders of arteries and arterioles; Z98.890 Other specified postprocedural states
CPT/HCPCS: 75635; 82565

== ENCOUNTER 2022-02-24 08:26 | Outpatient (CLI) | payer OTHER, MEDICAID | END 2022-02-24 08:27 | disposition home or self-care (01) | LOC: BICMAMMO 08:26 | PROVIDERS: ATTEND Student in an Organized Health Care Education/Training Program | DX: Z12.31 Encounter for screening mammogram for malignant neoplasm of breast (principal) | CPT/HCPCS: 77063; 77067 ==

== ENCOUNTER 2023-05-11 07:52 | Outpatient (CLI) | payer OTHER | END 2023-05-11 07:53 | disposition home or self-care (01) | LOC: BICMAMMO 07:52 | PROVIDERS: ATTEND Student in an Organized Health Care Education/Training Program | DX: Z12.31 Encounter for screening mammogram for malignant neoplasm of breast (principal); Z13.820 Encounter for screening for osteoporosis; Z78.0 Asymptomatic menopausal state | CPT/HCPCS: 77063; 77067; 77080 ==

== ENCOUNTER 2024-07-17 08:18 | Outpatient (CLI) | payer OTHER | END 2024-07-17 08:19 | disposition home or self-care (01) | LOC: BICMAMMO 08:18 | PROVIDERS: ATTEND Student in an Organized Health Care Education/Training Program | DX: Z12.31 Encounter for screening mammogram for malignant neoplasm of breast (principal) | CPT/HCPCS: 77063; 77067 ==